=== PATIENT | female | born 2005 | race Two or more races ===

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

== ENCOUNTER 2025-01-25 17:07 | Observation (INO) | payer MEDICAID, SELFPAY ==
[2025-01-25] VITALS (14 sets, daily range): BP systolic 110; BP diastolic 63; PULSE 92–129; RESP 18–98; TEMP 36.4; O2SAT 97–99; BMI 29.9
[2025-01-25 18:03] LABS: ROM Kit Lot # 58102387
[2025-01-25 18:04] LABS: ROM Swab Mixed By: MEDIA1; Rupture of Fetal Membranes Negative (Negative); Swb Mxed in Solvent 1 min? Yes
== END 2025-01-25 18:50 | disposition home or self-care (01) ==
PROVIDERS: Admitting Provider Obstetrics & Gynecology; Visit Provider Obstetrics & Gynecology
DX: Z34.03 Encounter for supervision of normal first pregnancy, third trimester (principal); Z3A.39 39 weeks gestation of pregnancy
CPT/HCPCS: 59025; 59899; 84112